=== PATIENT | female | born 1945 | race Caucasian/White ===

== ENCOUNTER 2025-04-05 19:24 | Emergency (ER) | payer OTHER, SELFPAY ==
[2025-04-05 19:27] VITALS: BP 159/92
[2025-04-05 21:51] VITALS: BP 153/72
--- NOTE | 2025-04-06 00:02 | ED.GENMED ---
History of Present Illness
General
Chief Complaint: Urinary Symptoms
Source: patient
Exam Limitations: none
Time Seen by Provider: 04/06/25 00:01
Nursing documentation reviewed up to this point in time: agreed with
History of Present Illness
History of Present Illness:
79-year-old female with a past medical history of Alzheimer's dementia, hypertension, presents emergency department today with concerns of increased urinary frequency and transient episodes of urinary incontinence. Patient lives at home under the
care of her and her daughter. Daughter and report that patient has dementia and is on a waiting list at [facility] and is a limited historian at baseline however they do report that patient has started to have intermittent
episodes of urinary incontinence and notes that occasionally will find her sitting in a small pool of urine. They have started to use depends for her. They also note that she has used the bathroom more frequently than she has used in the past.
Patient herself denies dysuria, urinary retention, pelvic pain, abdominal pain, nausea, vomiting. Patient denies any fevers or chills, chest pain, cough or upper respiratory symptoms. She denies any hematuria. She denies any diarrhea or
constipation. She denies any low back pain. She denies any difficulties with ambulation. She denies any paresthesias in her lower extremities. Daughter and son deny any change in her mental status.
Review of Systems
Review of Systems
All Other Systems: ROS reviewed and negative except as documented in HPI and ROS
Phy Exam
Physical Exam
Physical Exam:
General: Patient is well appearing and in no acute distress; non-toxic
Skin: Warm and dry, no rashes or lesions
Head: Normocephalic, atraumatic
Eyes: Sclera non-icteric. EOMs intact.
Cardiac: Regular rate and rhythm, no murmurs
Peripheral Vascular: No lower extremity swelling or edema
Pulm: Normal respiratory effort, no wheezes, rales, rhonchi
Abdomen: No abdominal tenderness to palpation
Neuro: CN II-XII intact, no focal neurologic deficits.
Psychiatric: Appropriate mood and affect.
Course
Orders/Labs/Results
Orders:
Orders
04/05/25 19:29
CMP [Comprehensive Metabolic Panel] Urgent
Complete Blood Count/With Diff Urgent
04/05/25 19:30
Urinalysis Reflex To Culture Urgent
Date Specimen was Collected: 04/05/25
Time Specimen was Collected: 19:30
04/06/25 01:35
Urine Microscopic Reflex Cult Urgent
Urine Culture Urgent
PHILIP Source: U
Specimen Description:
Date Specimen was Collected: 04/05/25
Time Specimen was Collected: 19:30
Abnormal Lab Results
04/06/25 04/06/25
00:37 01:35
WBC 11.5 H 10^3/uL
(4.8-10.8)
MCH 31.1 H pg
(27.0-31.0)
Absolute Lymphs (auto) 3.6 H 10^3/uL
(1.2-3.4)
Absolute Monos (auto) 1.0 H 10^3/uL
(0.1-0.6)
BUN 26 H mg/dl
(7-17)
Leukocyte Esterase Rfl 1+ A
(Negative)
Urine Bacteria (Reflex) Few A
(Negative)
04/06/25 00:37
04/06/25 00:37
Vital Signs
Initial and Last Documented VS:
Initial Vital Signs
Temp Pulse Resp BP Pulse Ox
98.1 F 71 19 159/92 97
04/05/25 19:27 04/05/25 19:27 04/05/25 19:27 04/05/25 19:27 04/05/25 19:27
Last Documented Vital Signs
Temp Pulse Resp BP Pulse Ox
98.1 F 62 20 155/102 98
04/05/25 19:27 04/06/25 03:01 04/06/25 03:01 04/06/25 00:05 04/06/25 03:03
MDM/Problems Addressed
Differential Diagnosis Includes:
Differentials include urinary tract faction, pelvic floor dysfunction, diabetes,
MDM/Problems Addressed:
79-year-old female presents emergency department today with concerns of intermittent episodes of urinary incontinence and urinary frequency. This started around 2 weeks ago. Patient herself has a history of dementia and is a limited historian but
at this time has not offered any complaints. She has no pelvic pain no abdominal pain no fevers or chills no dysuria. She has no signs of cauda equina syndrome. On physical exam she is well-appearing no acute distress. She is afebrile. She has
no abdominal tenderness. She has no focal neurologic deficits. CBC and CMP unremarkable. Her urinalysis does not show any signs concerning for infection. Suspect age-related pelvic floor dysfunction and perhaps memory related poor hygiene.
Discussed strict return precautions. Discussed follow-up with urogynecology. Patient stable for discharge. Patient does have a follow-up with her primary care provider next week.
Chronic conditions affecting care:
Hypertension, Alzheimer's
*Pulse Oximetry
Patient hypoxic: no
*Critical Care Note
Total Time (30-74mins, 75-104mins- exclusive of procedures): Not Applicable
Data Reviewed
Review of Other/Old Records Reveals: Records (Reviewed [facility], no previous ER physician documentation to review no discharge summaries to review)
ED Attending Note
-
Portions of this chart may have been created with voice recognition software.� Occasional wrong word or��sound alike� substitutions may have occurred due to the inherent limitations of voice recognition software.
Discharge Plan
Departure
Patient Disposition: Home (Routine Discharge)
Date of Disposition: 04/06/25
Time of Disposition: 02:41
Patient with high blood pressure during this ER visit?: Yes
Condition: Good
Discharge Problem:
Urinary frequency, Urinary incontinence
Instructions: Urinary incontinence in females, BLOOD PRESSURE
Referrals:
Colin Reynolds MD [Active, Urology] - Call in 1-3 days for appt
Bret Brown DO [Family Provider, Family Practice]
Activity Restrictions/Additional Instructions:
You will be called if your urine culture shows bacterial growth.
Please call the attached number to schedule appointment for follow-up. Please call your primary care provider.
PLEASE RETURN EMERGENCY DEPARTMENT SHOULD YOU DEVELOP ANY BURNING WITH URINATION, BLOOD IN YOUR URINE, FEVERS OR CHILLS, NAUSEA OR VOMITING, CHEST PAIN, SHORTNESS OF BREATH, LIGHTHEADEDNESS, DIZZINESS, LOW BACK PAIN, NUMBNESS AND TINGLING IN THE
GENITAL REGION, DIFFICULTY AMBULATING, WEAKNESS IN YOUR LOWER EXTREMITIES, OR ANY OTHER SIGNS OR SYMPTOMS WORRISOME TO YOU.
Interventions
Interventions:
*Risk Screen - Suicide Last Done: 04/05/25 19:27
*General Assessment Last Done: 04/06/25 00:41
*Neglect/Abuse Screening Last Done: 04/05/25 19:27
*ED- Fall Risk Assessment Last Done: 04/06/25 00:41
*ED COVID-19 Vaccine History Last Done: 04/06/25 00:41
*Nursing Disposition Last Done: 04/06/25 03:03
ED-Female Genitourinary Assessment Last Done: 04/06/25 00:41
Discharge Date and Time
Discharge Date/Time: 04/06/25 03:05
Print Language: GREENLANDIC
[2025-04-06 00:05] VITALS: BP 155/102
[2025-04-06 00:40] VITALS: BMI 37.0
[2025-04-06 00:46] LABS: % Basophils 0.7 % (0-2); % Eosinophils 3.1 % (0-6); % Immature Granulocytes 0.3 % (0-0.5); % Lymphocytes 31.5 % (20.5-51.1); % Monocytes 8.9 % (1.7-9.3); % Neutrophils 55.5 % (42.2-75.2); Absolute Basophils 0.1 10^3/uL (0-0.2); Absolute Eosinophils 0.4 10^3/uL (0-0.7); Absolute Lymphocytes 3.6 10^3/uL (1.2-3.4); Absolute Neutrophils 6.4 10^3/uL (1.4-6.5); Hematocrit 42.2 % (37.0-47.0); Hemoglobin 14.4 g/dL (12.0-16.0); Mean Corp Hgb Conc. 34.1 g/dL (33.0-37.0); Mean Corpuscular Hgb 31.1 pg (27.0-31.0); Mean Corpuscular Volume 91.1 fL (81.0-99.0); Mean Platelet Volume 9.6 fL (7.4-10.4); Nucleated Red Blood Cells % 0 %; Platelet Count 303 10^3/uL (130-400); Red Blood Cell Count 4.63 10^6/uL (4.20-5.40); Red Cell Dist. Width 13.1 % (11.5-14.5); White Blood Cell Count 11.5 10^3/uL (4.8-10.8)
[2025-04-06 00:59] LABS: ALT (SGPT) 15 U/L (0-35); AST (SGOT) 22 U/L (14-36); Albumin 4.6 g/dl (3.5-5.0); Alkaline Phosphatase 72 U/L (38-126); Blood Urea Nitrogen 26 mg/dl (7-17); Calcium 9.6 mg/dl (8.4-10.2); Carbon Dioxide 28 mmol/L (22-30); Chloride 106 mmol/L (98-107); Estimated Creatinine Clearance 85 ml/min; Glucose 95 mg/dl (70-99); Potassium 4.9 mmol/L (3.5-5.1); Sodium 141 mmol/L (135-145); Total Bilirubin 0.4 mg/dl (0.2-1.3); Total Protein 7.6 g/dl (6.3-8.2); eGFR > 60.00
[2025-04-06 01:41] LABS: Urine Albumin Negative (Neg - Trace); Urine Bilirubin Negative (Negative); Urine Character Clear (Clear); Urine Color Yellow; Urine Glucose Negative (Negative); Urine Ketone Negative (Negative); Urine Leukocyte 1+ (Negative); Urine Nitrite Negative (Negative); Urine Occult Blood Negative (Negative); Urine Urobilinogen Negative (Neg - 1+)
[2025-04-06 01:54] LABS: Urine Bacteria Few (Negative); Urine Red Blood Cell 0-2 /HPF (0-2); Urine Squamous Cell 16-20 /LPF (Few)
== END 2025-04-06 03:05 | disposition home or self-care (01) ==
LOC: EMR 19:24
PROVIDERS: Emergency Medicine; EMERGENCY PHYSICIAN Emergency Medicine; FAMILY PHYSICIAN Family Medicine
DX: R35.0 Frequency of micturition (principal); R32 Unspecified urinary incontinence; F02.80 Dementia in other diseases classified elsewhere, unspecified severity, without behavioral disturbance, psychotic disturbance, mood disturbance, and anxiety; G30.9 Alzheimer's disease, unspecified; I10 Essential (primary) hypertension
CPT/HCPCS: 99283; 80053; 81003; 81015; 85025; 87086

== ENCOUNTER → 2025-04-21 09:17 | Outpatient (REF) | payer OTHER, SELFPAY ==
[2025-04-21 10:36] LABS: ALT (SGPT) 11 U/L (0-35); AST (SGOT) 19 U/L (14-36); Albumin 3.6 g/dl (3.5-5.0); Alkaline Phosphatase 65 U/L (38-126); Blood Urea Nitrogen 13 mg/dl (7-17); Carbon Dioxide 26 mmol/L (22-30); Chloride 108 mmol/L (98-107); Glucose 91 mg/dl (70-99); HDL Cholesterol 48 mg/dl; LDL Cholesterol, Calculated 130 mg/dl; Potassium 4.2 mmol/L (3.5-5.1); Sodium 139 mmol/L (135-145); Total Bilirubin 0.6 mg/dl (0.2-1.3); Total Cholesterol 199 mg/dl (50-199); Total Protein 6.1 g/dl (6.3-8.2); Triglyceride 105 mg/dl (10-149); Very Low Density Lipoprotein 21 mg/dl (0-30); eGFR > 60.00
== END ==
LOC: OLABN 09:17
PROVIDERS: ATTENDING PHYSICIAN Student in an Organized Health Care Education/Training Program
DX: I10 Essential (primary) hypertension (principal)
CPT/HCPCS: 36415; 80053; 80061

== ENCOUNTER → 2025-06-04 21:15 | Outpatient (REF) | payer OTHER, SELFPAY ==
[2025-06-05 11:07] LABS: Urine Character Clear (Clear)
[2025-06-05 11:08] LABS: Urine White Cell 0-2 /HPF (0-5)
== END ==
LOC: OLABN 21:15
PROVIDERS: ATTENDING PHYSICIAN Student in an Organized Health Care Education/Training Program
DX: R50.9 Fever, unspecified (principal)
CPT/HCPCS: 81003; 81015; 87086

== ENCOUNTER → 2025-07-15 11:43 | Outpatient (REF) | payer SELFPAY ==
[2025-07-15 13:04] LABS: Vitamin B12 532 pg/ml (239-931)
== END ==
LOC: OLABN 11:43
PROVIDERS: ATTENDING PHYSICIAN Student in an Organized Health Care Education/Training Program
DX: E53.9 Vitamin B deficiency, unspecified (principal)
CPT/HCPCS: 36415; 82607

== ENCOUNTER 2025-07-21 06:32 | Emergency (ER) | payer OTHER, SELFPAY ==
[2025-07-21 06:44] VITALS: BP 155/127
--- NOTE | 2025-07-21 06:46 | ED.GENMED ---
History of Present Illness
General
Chief Complaint: Abdominal Pain
Source: patient and ambulance crew
Exam Limitations: dementia
Time Seen by Provider: 07/21/25 06:33
History of Present Illness
History of Present Illness:
79yoF with a history of dementia, hypertension, hyperlipidemia, and anemia presenting via EMS for evaluation of abdominal pain. Patient is a resident at [facility]. Due to her dementia, history is obtained from EMS report. Patient reportedly
started to complain of pain yesterday and was noted to be rubbing her abdomen. She had a small hard BM yesterday and correction staff thought she may be constipated. She was given a suppository without improvement as well as rectal Tylenol. No
reported vomiting. Upon arrival, patient states that 'everything hurts' and is unable to elaborate further.
Phy Exam
General Physical Exam
General Presentation: well appearing and no apparent distress
General Skin: warm and dry
General Habitus: normal and elderly
General Mental: alert
ENT Exam
ENT Exam: normocephalic
Cardiovascular Exam
Cardiovascular Exam: regular rate/rhythm and no edema
Pulmonary Exam
Pulmonary Exam: no respiratory distress
Gastrointestinal Exam
Gastrointestinal Exam: soft, non distended and other (+Tenderness throughout abdomen. Abdomen soft, non-distended. No guarding.)
Rectal Exam: other (Non-thrombosed external hemorrhoids noted)
Neurological Exam
Neurological Exam: alert
Skin Exam
Skin Exam: normal color and warm/dry
Psychiatric Exam
Psychiatric Exam: anxious
Course
Orders/Labs/Results
Orders:
Orders
07/21/25 06:44
Electrocardiogram (*1) Urgent
Reason for Study: Abdominal Pain
CT Abd/pelvis W Iv Cont Urgent
Comment:
Reason For Exam: abdominal pain
EKG- Treatment ONCE
07/21/25 06:55
Complete Blood Count/With Diff Urgent
Comprehensive Metabolic Panel Urgent
Lactate Level [Lactic Acid] Urgent
Lipase Urgent
Troponin I Urgent
07/21/25 08:16
Urinalysis Reflex To Culture Urgent
Date Specimen was Collected: 07/21/25
Time Specimen was Collected: 08:14
Urine Microscopic Reflex Cult Urgent
Abnormal Lab Results
07/21/25 07/21/25
06:55 08:16
MCHC 32.8 L g/dL
(33.0-37.0)
Abs Immat Gran (auto) 0.1 H 10^3/uL
(0-0.05)
Absolute Monos (auto) 1.0 H 10^3/uL
(0.1-0.6)
Monocytes % 10.0 H %
(1.7-9.3)
Glucose 100 H mg/dl
(70-99)
Urine RBC 3-6 A /HPF
(0-2)
Urine Bacteria (Reflex) Few A
(Negative)
Urine Albumin (Reflex) 1+ A
(Neg - Trace)
07/21/25 06:55
07/21/25 06:55
Vital Signs
Initial and Last Documented VS:
Initial Vital Signs
Temp Pulse Resp Pulse Ox
97.3 F 65 16 95
07/21/25 06:37 07/21/25 06:37 07/21/25 06:37 07/21/25 06:37
Last Documented Vital Signs
Temp Pulse Resp BP Pulse Ox
97.3 F 72 16 150/61 95
07/21/25 06:37 07/21/25 09:06 07/21/25 09:06 07/21/25 07:03 07/21/25 06:37
MDM/Problems Addressed
Differential Diagnosis Includes:
79yoF presenting from her correction for abd pain. Hx of dementia. States 'everything hurts' when asked. She is hypertensive with otherwise stable vitals. She is non-toxic appearing. There is generalized abdominal tenderness on exam. Differential
diagnosis includes but is not limited to: constipation, stercoral colitis, diverticulitis, cholecystitis, appendicitis, perforated viscus
Initial ED plan: Check abdominal labs, lactate, troponin/EKG, UA, and CT abdomen.
*Pulse Oximetry
Patient hypoxic: no
*EKG
Interpreted by ED Provider?: Yes
EKG Intrepretation Date: 07/21/25
Heart Rate: 61
Rate: normal
Rhythm: sinus
Empire: normal axis
Interval: normal interval
QRS Pattern: normal QRS
Ischemia: no ischemia
*Critical Care Note
Total Time (30-74mins, 75-104mins- exclusive of procedures): Not Applicable
Update Note
Update Note:
Labs unremarkable including normal white count, lactate, renal function, LFTs. EKG shows normal sinus rhythm without ischemic changes and troponin normal. No signs of infection on urinalysis. CT shows moderate stool in rectum with suspected mild
proctitis. Patient able to have several bowel movements throughout ED stay. Will defer disimpaction/enema at this time. Patient stable for discharge back to nursing facility. Daughter updated at bedside.
ED Attending Note
-
Portions of this chart may have been created with voice recognition software.� Occasional wrong word or��sound alike� substitutions may have occurred due to the inherent limitations of voice recognition software.
Discharge Plan
Departure
Patient Disposition: Home (Routine Discharge)
Date of Disposition: 07/21/25
Time of Disposition: 09:56
Patient with high blood pressure during this ER visit?: Yes
Discharge Problem:
Constipation
Instructions: Constipation, Adult (DC)
Prescriptions:
No Action
acetaminophen [Tylenol] 325 mg Tablet
650 mg PO Q4HPRN PRN (Reason: mild pain)
donepezil 10 mg Tablet
10 mg PO HS
nadolol 20 mg Tablet
20 mg PO DAILY
hydrocortisone [Anusol-HC] 2.5 % Cream With Perineal Applicator
1 applic GA DAILYPRN PRN (Reason: hemorrhoids)
magnesium hydroxide [Milk of Magnesia] 400 mg/5 mL Suspension
2,400 mg PO HSPRN PRN (Reason: constipation)
ascorbic acid (vitamin C) [Vitamin C] 500 mg Tablet
500 mg PO DAILY
bisacodyl [Dulcolax (bisacodyl)] 10 mg Suppository
10 mg GA [id number] PRN (Reason: if no bm aftr mom)
memantine 10 mg Tablet
10 mg PO BID
cholecalciferol (vitamin D3) [Vitamin D3] 50 mcg (2,000 unit) Tablet
50 mcg PO DAILY
Referrals:
UNKNOWN - PT DOES,NOT KNOW [Family Provider]
Activity Restrictions/Additional Instructions:
Give MiraLAX daily as needed for constipation. Continue to give Dulcolax suppositories as needed.
Please follow-up with your family doctor. Return to the ER with any new or worsening symptoms.
Interventions
Interventions:
*Risk Screen - Suicide Last Done: 07/21/25 06:37
*General Assessment Last Done: 07/21/25 06:37
*Neglect/Abuse Screening Last Done: 07/21/25 06:37
*ED- Fall Risk Assessment Last Done: 07/21/25 06:37
*ED COVID-19 Vaccine History Last Done: 07/21/25 06:37
ZA-[id number]-Qmxrchxlcc Assessment Last Done: 07/21/25 07:14
Discharge Date and Time
Print Language: SPANISH
[2025-07-21 07:03] VITALS: BP 150/61
[2025-07-21 07:17] LABS: Hematocrit 37.8 % (37.0-47.0); Hemoglobin 12.4 g/dL (12.0-16.0); Mean Corp Hgb Conc. 32.8 g/dL (33.0-37.0); Mean Corpuscular Volume 87.5 fL (81.0-99.0); Nucleated Red Blood Cells % 0 %; Platelet Count 311 10^3/uL (130-400); Red Cell Dist. Width 12.8 % (11.5-14.5)
[2025-07-21 07:28] LABS: ALT (SGPT) 13 U/L (0-35); AST (SGOT) 17 U/L (14-36); Albumin 3.7 g/dl (3.5-5.0); Alkaline Phosphatase 65 U/L (38-126); Blood Urea Nitrogen 14 mg/dl (7-17); Calcium 9.4 mg/dl (8.4-10.2); Carbon Dioxide 28 mmol/L (22-30); Chloride 106 mmol/L (98-107); Glucose 100 mg/dl (70-99); Lipase 141 U/L (23-300); Potassium 4.2 mmol/L (3.5-5.1); Sodium 138 mmol/L (135-145); Total Protein 6.6 g/dl (6.3-8.2); eGFR > 60.00
--- NOTE | 2025-07-21 07:36 | EDRN ---
Provider aware that pt may need a PRN med for sedation in order to complete ordered tests as pt becomes combative and tries to hurt staff.
[2025-07-21 07:39] LABS: Troponin I < 0.012 ng/ml
[2025-07-21 08:29] LABS: Urine Character Clear (Clear)
[2025-07-21 08:47] LABS: Urine White Cell 0-2 /HPF (0-5)
--- NOTE | 2025-07-21 09:40 | EDRN ---
Provider aware that pt is striking at staff/ family and is agitated. Family hoping for some sedation
[2025-07-21 12:03] VITALS: BP 134/76
== END 2025-07-21 12:10 | disposition home or self-care (01) ==
LOC: EMR 06:32
PROVIDERS: Physician Assistant; EMERGENCY PHYSICIAN Emergency Medicine
DX: K59.00 Constipation, unspecified (principal); F03.90 Unspecified dementia, unspecified severity, without behavioral disturbance, psychotic disturbance, mood disturbance, and anxiety; I10 Essential (primary) hypertension; E78.5 Hyperlipidemia, unspecified; K64.4 Residual hemorrhoidal skin tags
CPT/HCPCS: 99284; 74177; 80053; 81003; 81015; 83605; 83690; 84484; 85025; 93005; Q9967

== ENCOUNTER → 2025-08-16 10:39 | Outpatient (REF) | payer MEDICARE, SELFPAY ==
[2025-08-16 11:22] LABS: Hematocrit 38.1 % (37.0-47.0); Hemoglobin 12.2 g/dL (12.0-16.0); Mean Corp Hgb Conc. 32.0 g/dL (33.0-37.0); Mean Corpuscular Volume 88.8 fL (81.0-99.0); Nucleated Red Blood Cells % 0 %; Platelet Count 322 10^3/uL (130-400); Red Cell Dist. Width 13.4 % (11.5-14.5)
== END ==
LOC: OLABN 10:39
PROVIDERS: ATTENDING PHYSICIAN Student in an Organized Health Care Education/Training Program
DX: D64.9 Anemia, unspecified (principal)
CPT/HCPCS: 36415; 85025

== ENCOUNTER → 2025-08-27 10:13 | Outpatient (REF) | payer MEDICARE, SELFPAY ==
[2025-08-27 10:49] LABS: Hematocrit 39.9 % (37.0-47.0); Hemoglobin 12.5 g/dL (12.0-16.0); Mean Corp Hgb Conc. 31.3 g/dL (33.0-37.0); Mean Corpuscular Volume 94.1 fL (81.0-99.0); Nucleated Red Blood Cells % 0 %; Platelet Count 283 10^3/uL (130-400); Red Cell Dist. Width 13.5 % (11.5-14.5)
[2025-08-27 10:53] LABS: Blood Urea Nitrogen 18 mg/dl (7-17); Calcium 9.0 mg/dl (8.4-10.2); Carbon Dioxide 28 mmol/L (22-30); Chloride 105 mmol/L (98-107); Glucose 105 mg/dl (70-99); Potassium 4.0 mmol/L (3.5-5.1); Sodium 134 mmol/L (135-145); eGFR > 60.00
== END ==
LOC: OLABN 10:13
PROVIDERS: ATTENDING PHYSICIAN Student in an Organized Health Care Education/Training Program
DX: I10 Essential (primary) hypertension (principal)
CPT/HCPCS: 36415; 80048; 85025